=== PATIENT | male | born 1950 | race Caucasian/White ===

== ENCOUNTER 2021-01-29 19:10 | Emergency (ER) | payer BC ==
[~2021-01-29] VITALS: Ht 177.8 cm; Wt 78.5 kg
[2021-01-29] MEDS ORDERED: TDAP DIPH,PERTUSS,TET VAC/PF 0.5 ML DISP.SYRIN IM ONE ×2 (19:45→20:01)
[2021-01-29] MEDS ORDERED: LIDOCAINE HCL 2% 20 ML VIAL IJ ONE (19:45)
--- NOTE | 2021-01-29 20:51 | NUR ---
Patient discharged to home in stable condition. Written and verbal after care instructions given. Patient verbalizes understanding of instructions. Stressed follow up or return to ER for worsening s/s. Neurological check done, no deficits noted. Pulses, warmth, & feeling distal to injury intact and present. All belongings with patient. VSS. Steady gait.
[2021-01-29 20:52] VITALS: BP 118/75
== END 2021-01-29 21:04 | disposition home or self-care (01) ==
LOC: ER 19:10
DX: S61.011A Laceration without foreign body of right thumb without damage to nail, initial encounter (principal); S61.216A Laceration without foreign body of right little finger without damage to nail, initial encounter; W25.XXXA Contact with sharp glass, initial encounter; Y92.89 Other specified places as the place of occurrence of the external cause; Z95.5 Presence of coronary angioplasty implant and graft; R73.03 Prediabetes
CPT/HCPCS: 90715; A4217; A4663